=== PATIENT | male | born 1965 | race Caucasian/White ===

== ENCOUNTER 2020-06-08 18:22 | Emergency (ER) | payer OTHER ==
[2020-06-08 19:54] LABS: HEMOGLOBIN 17.1 gm/dl (14.0-17.5); RED BLOOD COUNT 5.16 M/UL (4.20-5.50); WHITE BLOOD COUNT 10.1 K/UL (4.5-11.0)
[2020-06-08 20:14] LABS: BUN/CREATININE RATIO 11 (0-10)
== END 2020-06-08 22:53 | disposition home or self-care (01) ==
LOC: ER1 18:22
PROVIDERS: Emergency Medicine
DX: R07.89 Other chest pain (principal); I10 Essential (primary) hypertension; E78.5 Hyperlipidemia, unspecified; E11.9 Type 2 diabetes mellitus without complications; F17.210 Nicotine dependence, cigarettes, uncomplicated
CPT/HCPCS: 71045; 80053; 82550; 82553; 83874; 84484; 85025; 93005; 99284

== ENCOUNTER → 2020-06-14 | Outpatient (CLI) | payer OTHER | LOC: HEART 5 07:45 | DX: R07.9 Chest pain, unspecified (principal) | CPT/HCPCS: 78452; A9502; J2785 ==

== ENCOUNTER → 2020-07-12 | Outpatient (CLI) | payer OTHER | LOC: HEART 5 14:27 | DX: R00.2 Palpitations (principal); I47.1 Supraventricular tachycardia ==

== ENCOUNTER 2021-03-28 14:31 | Emergency (ER) | payer OTHER ==
[2021-03-28 17:19] LABS: HEMOGLOBIN 18.7 gm/dl (14.0-17.5); RED BLOOD COUNT 5.61 M/UL (4.20-5.50); WHITE BLOOD COUNT 10.3 K/UL (4.5-11.0)
[2021-03-28 17:56] LABS: BUN/CREATININE RATIO 10 (0-10)
== END 2021-03-28 21:35 | disposition home or self-care (01) ==
LOC: ER1 14:31
PROVIDERS: Emergency Medicine
DX: I10 Essential (primary) hypertension (principal); R42 Dizziness and giddiness
CPT/HCPCS: 70450; 71045; 80053; 82550; 82553; 83874; 84484; 85025; 85379; 93005; 99284; Q9967

== ENCOUNTER → 2021-06-25 | Outpatient (CLI) | payer OTHER | LOC: HEART 5 09:00 → EXRD 13:00 → HEART 5 13:30 | DX: R55 Syncope and collapse (principal); R06.02 Shortness of breath; I08.1 Rheumatic disorders of both mitral and tricuspid valves | CPT/HCPCS: 93306; 93880 ==